=== PATIENT | male | born 1950 | race Caucasian/White ===

== ENCOUNTER 2022-01-19 16:31 | Inpatient (IN) | payer BC, MEDICARE ==
[~2022-01-19 16:31] MED LIST: Iopamidol 370 76% 100 ML VIAL ONE
[2022-01-19 16:58] LABS: #Basophils 0.1 thou/uL (0.0-0.2); #Eosinphils 0.2 thou/uL (0.0-0.7); #Lymphocytes 1.4 thou/uL (1.20-3.40); #Monocytes 0.8 thou/uL (0.11-0.59); #Neutrophils 8.4 thou/uL (1.40-6.50); %Basophils 0.8 % (0.0-1.0); %Lymphocytes 12.6 % (21.0-51.0); %Monocytes 7.5 % (0.0-10.0); %Neutrophils 77.1 % (42.0-75.0); Hemoglobin 16.7 g/dL (14.0-18.0); Mean Corpuscular HGB CONC 32.6 g/dL (32.0-36.0); Mean Corpuscular Volume 97.9 fL (78.0-98.0); Mean Platelet Volume 9.3 fL (7.4-10.4); Platelet Count 182 thou/uL (130-400); RBC Distribution Width 13.5 % (11.5-14.5); Red Blood Cell (RBC) Count 5.24 mill/uL (4.70-6.10); White Blood Cell (WBC) Count 10.9 thou/uL (4.8-10.8)
[2022-01-19 17:20] LABS: ALT (SGPT) 55 U/L (8-55); AST (SGOT) 23 U/L (5-34); Alkaline Phosphatase 103 U/L (40-110); Anion Gap 14 mmol/L (10-20); BUN (Urea Nitrogen) 30 mg/dL (8.4-25.7); Bilirubin, Total 1.1 mg/dL (0.2-1.2); Calc. Creatinine Clearance 0 mL/min (70-130); Carbon Dioxide 23 mmol/L (23-31); Chloride 106 mmol/L (98-107); Globulin 3.5 g/dL (2.4-3.5); Glucose 110 mg/dL (80-115); INR-International Normal Ratio 1.1; Potassium 4.1 mmol/L (3.5-5.1); Protein, Total 7.5 g/dL (5.8-8.1); Prothrombin Time 14.4 sec (12.0-14.7); Sodium 139 mmol/L (136-145)
[2022-01-19 17:43] LABS: CKMB 1.8 ng/mL (0-6.6)
[2022-01-19] MEDS ORDERED: Aspirin Chewable 81 MG TAB ONE (17:58)
[2022-01-19] MEDS ORDERED: Enoxaparin Sodium 100 MG/ML SYRINGE ONE (18:26)
[2022-01-19] MEDS ORDERED: Senokot S 8.6-50 MG TAB PO PRN (19:11)
[2022-01-19 19:46] LABS: SARS-CoV-2 NAA Rapid Test Not Detected (NotDetected)
[2022-01-19 20:18] LABS: Troponin I 0.028 ng/mL (< 0.028)
[2022-01-19 20:33] VITALS: BMI 30.4
[2022-01-19] MEDS: Enoxaparin Sodium 100 MG/ML SYRINGE SC SCH (21:00)
[2022-01-19] MEDS ORDERED: Albuterol 200 PUFF (6.7GM INHALER) INH PRN (22:35)
[2022-01-19 23:01] LABS: Fibrinogen 396 mg/dL (253-463)
[2022-01-20 03:54] LABS: #Basophils 0.1 thou/uL (0.0-0.2); #Eosinphils 0.3 thou/uL (0.0-0.7); #Lymphocytes 1.7 thou/uL (1.20-3.40); #Monocytes 0.8 thou/uL (0.11-0.59); %Basophils 0.8 % (0.0-1.0); %Eosinophils 3.3 % (0.0-10.0); %Lymphocytes 16.9 % (21.0-51.0); %Monocytes 8.1 % (0.0-10.0); %Neutrophils 70.9 % (42.0-75.0); Hemoglobin 15.3 g/dL (14.0-18.0); Mean Corpuscular HGB CONC 33.3 g/dL (32.0-36.0); Mean Corpuscular Hemoglobin 32.6 pg (27.0-31.0); Mean Corpuscular Volume 97.9 fL (78.0-98.0); Mean Platelet Volume 9.6 fL (7.4-10.4); Platelet Count 169 thou/uL (130-400); RBC Distribution Width 13.5 % (11.5-14.5); Red Blood Cell (RBC) Count 4.69 mill/uL (4.70-6.10); White Blood Cell (WBC) Count 9.8 thou/uL (4.8-10.8)
[2022-01-20 04:14] LABS: ALT (SGPT) 48 U/L (8-55); AST (SGOT) 21 U/L (5-34); Albumin 3.7 g/dL (3.4-4.8); Alkaline Phosphatase 94 U/L (40-110); Anion Gap 15 mmol/L (10-20); BUN (Urea Nitrogen) 28 mg/dL (8.4-25.7); Bilirubin, Total 0.9 mg/dL (0.2-1.2); Calc. Creatinine Clearance 67 mL/min (70-130); Calcium 8.8 mg/dL (7.8-10.44); Carbon Dioxide 20 mmol/L (23-31); Chloride 107 mmol/L (98-107); Globulin 3.3 g/dL (2.4-3.5); Glucose 105 mg/dL (80-115); Potassium 3.9 mmol/L (3.5-5.1); Sodium 138 mmol/L (136-145)
[2022-01-20] MEDS: Mometasone 200 MCG/Formoterol 5 MCG 120 PUFF INHALER INH SCH ×2 (08:44→18:13)
[2022-01-20] MEDS ORDERED: Non-Formulary Item 1 EACH (Telmisartan/Hydrochlorothiazid [Telmisartan-Hctz 40-12.5 Mg Tb PO SCH (09:00)
[2022-01-20] MEDS: Enoxaparin Sodium 100 MG/ML SYRINGE SC SCH ×2 (09:02→20:50)
[2022-01-20 11:58] LABS: SARS-CoV-2 IgG Spike Ab Interp Reactive (NonReactive); SARS-CoV-2 IgG Spike Conc/Indx 3554.7 AU/mL (0.00-50.0)
[2022-01-20] MEDS: Loratadine 10 MG TAB PO SCH (20:49)
[2022-01-20] MEDS: Oxybutynin ER 5 MG TAB PO SCH (20:50)
[2022-01-20] MEDS: Acetaminophen 325 MG TAB PO PRN (23:48)
[2022-01-21] MEDS: Mometasone 200 MCG/Formoterol 5 MCG 120 PUFF INHALER INH SCH ×2 (06:07→18:27)
[2022-01-21 08:36] LABS: INR-International Normal Ratio 1.1; Prothrombin Time 14.6 sec (12.0-14.7)
[2022-01-21] MEDS: Enoxaparin Sodium 100 MG/ML SYRINGE SC SCH (08:47)
[2022-01-21] MEDS: UROGESIC BLUE PO SCH (09:00)
[2022-01-21] MEDS ORDERED: [UNRECOGNIZED DRUG - OTHER] PO SCH (11:53)
[2022-01-21 12:34] LABS: Cardiolipin IgA Ab 0.9 APL-U/mL (<14 Negative); Cardiolipin IgG Ab 1.7 GPL-U/mL (<10 Negative); Cardiolipin IgM Ab Less than 0.8 MPL-U/mL (<10 Negative); EliA APS New Method **** NEW METHOD ****; beta-2-Glycoprotein I IgA Ab 0.7 U/mL (<7 Negative); beta-2-Glycoprotein I IgG Ab 1.1 U/mL (<7 Negative); beta-2-Glycoprotein I IgM Abs Less than 2.9 U/mL (<7 Negative)
[2022-01-21] MEDS: Ondansetron PF 4 MG/2 ML Vial IVP PRN ×2 (17:47→23:45)
[2022-01-21] MEDS: Apixaban 5 MG TAB PO SCH (20:50)
[2022-01-21] MEDS: Loratadine 10 MG TAB PO SCH (20:51)
[2022-01-21] MEDS: Oxybutynin ER 5 MG TAB PO SCH (20:54)
[2022-01-22] MEDS: Mometasone 200 MCG/Formoterol 5 MCG 120 PUFF INHALER INH SCH ×2 (07:12→19:01)
[2022-01-22 08:08] LABS: #Basophils 0.1 thou/uL (0.0-0.2); #Eosinphils 0.3 thou/uL (0.0-0.7); #Lymphocytes 1.1 thou/uL (1.20-3.40); #Monocytes 0.7 thou/uL (0.11-0.59); %Basophils 0.7 % (0.0-1.0); %Eosinophils 2.9 % (0.0-10.0); %Lymphocytes 12.2 % (21.0-51.0); %Monocytes 7.5 % (0.0-10.0); %Neutrophils 76.8 % (42.0-75.0); Hemoglobin 16.5 g/dL (14.0-18.0); Mean Corpuscular HGB CONC 31.4 g/dL (32.0-36.0); Mean Corpuscular Volume 98.8 fL (78.0-98.0); Mean Platelet Volume 8.9 fL (7.4-10.4); Platelet Count 185 thou/uL (130-400); RBC Distribution Width 13.4 % (11.5-14.5); Red Blood Cell (RBC) Count 5.31 mill/uL (4.70-6.10); White Blood Cell (WBC) Count 9.1 thou/uL (4.8-10.8)
[2022-01-22 08:27] LABS: ALT (SGPT) 46 U/L (8-55); AST (SGOT) 20 U/L (5-34); Albumin 3.7 g/dL (3.4-4.8); Alkaline Phosphatase 94 U/L (40-110); Anion Gap 13 mmol/L (10-20); BUN (Urea Nitrogen) 23 mg/dL (8.4-25.7); Bilirubin, Total 1.3 mg/dL (0.2-1.2); Calc. Creatinine Clearance 67 mL/min (70-130); Calcium 9.3 mg/dL (7.8-10.44); Carbon Dioxide 24 mmol/L (23-31); Chloride 105 mmol/L (98-107); Globulin 3.4 g/dL (2.4-3.5); Glucose 99 mg/dL (80-115); Potassium 4.1 mmol/L (3.5-5.1); Protein, Total 7.1 g/dL (5.8-8.1); Sodium 138 mmol/L (136-145)
[2022-01-22] MEDS ORDERED: Iopamidol 370 76% 50 ML VIAL FS ONE (08:43)
[2022-01-22] MEDS: UROGESIC BLUE PO SCH (09:04)
[2022-01-22 10:30] LABS: Protein C Activity 100 % (78-152)
[2022-01-22] MEDS: Apixaban 5 MG TAB PO SCH ×2 (10:30→21:20)
[2022-01-22 11:24] LABS: Factor VIII Test 236.5 % ACTIVE (56-157)
[2022-01-22] MEDS: Oxybutynin ER 5 MG TAB PO SCH (21:19)
[2022-01-22] MEDS: Ondansetron PF 4 MG/2 ML Vial IVP PRN (21:20)
[2022-01-22] MEDS: Loratadine 10 MG TAB PO SCH (21:20)
[2022-01-23] MEDS: Ondansetron PF 4 MG/2 ML Vial IVP PRN ×2 (06:15→19:52)
[2022-01-23] MEDS ORDERED: Silver Nitrate Application 1 EACH TOP SCH (07:00)
[2022-01-23] MEDS: Mometasone 200 MCG/Formoterol 5 MCG 120 PUFF INHALER INH SCH ×2 (07:32→18:56)
[2022-01-23] MEDS: UROGESIC BLUE PO SCH (11:40)
[2022-01-23] MEDS: Apixaban 5 MG TAB PO SCH ×2 (11:40→19:51)
[2022-01-23] MEDS: Acetaminophen 325 MG TAB PO PRN (11:40)
[2022-01-23 12:19] LABS: DRVVT Confirm 40.3; HEX PHOS LA Tube 2 43.8 SEC; Hexagonal Phospholipid Neut 3.2 SEC (0-8.0)
[2022-01-23] MEDS: Oxybutynin ER 5 MG TAB PO SCH (19:51)
[2022-01-23] MEDS: Loratadine 10 MG TAB PO SCH (19:52)
[2022-01-24] MEDS: Mometasone 200 MCG/Formoterol 5 MCG 120 PUFF INHALER INH SCH (07:07)
[2022-01-24] MEDS: Apixaban 5 MG TAB PO SCH (09:16)
[2022-01-24] MEDS: UROGESIC BLUE PO SCH (09:21)
[2022-01-24 16:20] VITALS: BP 118/60; TEMP 97
== END 2022-01-24 18:00 | disposition home or self-care (01) | DRG 175 ==
LOC: ERS 16:31 → IMCU/EMU 18:42 → 2NO 01-22 17:12
PROVIDERS: ADMIT Family Medicine; ATTEND Family Medicine
PROC: 06H03DZ Insertion of Intraluminal Device into Inferior Vena Cava, Percutaneous Approach (ICD-10-PCS; principal; 2022-01-22)
DX: I26.94 Multiple subsegmental thrombotic pulmonary emboli without acute cor pulmonale (principal); I21.A1 Myocardial infarction type 2; J96.01 Acute respiratory failure with hypoxia; N17.9 Acute kidney failure, unspecified; I47.2 Ventricular tachycardia; Z20.822 Contact with and (suspected) exposure to COVID-19; I10 Essential (primary) hypertension; N40.0 Benign prostatic hyperplasia without lower urinary tract symptoms; F32.A Depression, unspecified; I25.10 Atherosclerotic heart disease of native coronary artery without angina pectoris; K21.9 Gastro-esophageal reflux disease without esophagitis; K80.20 Calculus of gallbladder without cholecystitis without obstruction; I45.10 Unspecified right bundle-branch block; I27.20 Pulmonary hypertension, unspecified; Z96.659 Presence of unspecified artificial knee joint; Z87.891 Personal history of nicotine dependence; Z88.2 Allergy status to sulfonamides; Z79.51 Long term (current) use of inhaled steroids; Z79.899 Other long term (current) drug therapy
CPT/HCPCS: 36415; 37191; 71045; 71275; 80053; 81241; 82553; 83690; 83880; 84484; 85025; 85240; 85250; 85303; 85305; 85384; 85598; 85610; 85613; 85730; 86146; 86147; 86769; 93005; 93010; 93306; 93970; 94760; 96372; C1880; J1650; J2405; J7620; Q9967; U0002